=== PATIENT | male | born 1995 | race Hispanic/Latino ===

== ENCOUNTER 2021-11-30 06:59 | Emergency (ER) | payer OTHER ==
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
[2021-11-30] MEDS ORDERED: ONDANSETRON 4 MG/2 ML INJ IV ONE (08:08)
[2021-11-30] MEDS ORDERED: MORPHINE 4 MG/1 ML INJ IV ONE ×2 (08:08→14:16)
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
[2021-11-30 08:49] LABS: Basophils % (Auto) 0.1 % (0.0-1.8); Eosinophils # (Auto) 0.1 K/mm3 (0.0-0.4); Eosinophils % (Auto) 0.8 % (0.0-4.3); Hematocrit 34.7 % (35.5-45.6); Hemoglobin 11.8 gm/dl (11.8-15.2); Lymphocytes # (Auto) 0.3 K/mm3 (1.2-5.4); Lymphocytes % (Auto) 4.5 % (13.4-35.0); Mean Corpuscular HGB Conc 34 % (32-34); Mean Corpuscular Volume 91 fl (84-94); Monocytes # (Auto) 0.6 K/mm3 (0.0-0.8); Monocytes % (Auto) 8.8 % (0.0-7.3); Red Blood Count 3.81 M/mm3 (3.65-5.03); Red Cell Distribution Width 13.2 % (13.2-15.2)
[2021-11-30 08:50] LABS: Platelet Count 98 K/mm3 (140-440)
[2021-11-30 09:00] LABS: INR 0.9 (0.87-1.13)
[2021-11-30 09:01] LABS: Partial Thromboplastin Time 32.8 Sec. (24.2-36.6)
[2021-11-30 09:17] LABS: Alanine Aminotransferase 135 units/L (7-56); BUN/Creatinine Ratio 15; Blood Urea Nitrogen 12 mg/dL (9-20); Calcium 8.8 mg/dL (8.4-10.2); Hemolysis Index 6
[2021-11-30] MEDS ORDERED: SODIUM CHLORIDE 0.9% 1000 ML 1,000 ML IV ONE (09:19)
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
[2021-11-30] MEDS ORDERED: MORPHINE 4 MG/1 ML INJ IV PRN (14:18)
[2021-11-30 15:01] VITALS: BP 116/50
--- NOTE | 2021-11-30 21:42 | Electrocardiograph Report ---
[facility] Test Date: 2021-11-30 Test Time: 07:16:07 Pat Name: MERCEDES MCCLAIN Department: Room: Gender: M [employer] Associate Justice: patricia : 1995 Requested By: ALLISON UMANZOR Order Number: [id number] Reading MD: Penny Baker Measurements Intervals [place] Rate: 101 P: 64 MD: 149 QRS: 77 QRSD: 95 T: 40 QT: 322 QTc: 417 Interpretive Statements Sinus tachycardia Left atrial enlargement No previous ECG available for comparison Electronically Signed On 11-30-2021 21:42:42 EDT by Penny Baker
== END 2021-11-30 16:05 | disposition short-term general hospital (02) ==
LOC: ED 06:59
DX: S36.113A Laceration of liver, unspecified degree, initial encounter (principal); S27.329A Contusion of lung, unspecified, initial encounter; J93.9 Pneumothorax, unspecified; R09.02 Hypoxemia; M84.48XA Pathological fracture, other site, initial encounter for fracture; R74.01 Elevation of levels of liver transaminase levels; D69.6 Thrombocytopenia, unspecified; V89.2XXA Person injured in unspecified motor-vehicle accident, traffic, initial encounter; Y93.89 Activity, other specified; Y92.89 Other specified places as the place of occurrence of the external cause; Y99.8 Other external cause status
CPT/HCPCS: 36415; 71046; 71260; 74177; 80053; 85025; 85610; 85730; 86850; 86900; 86901; 93005; 96374; 96375; 96376; 99291; J2270; J2405; Q9967